=== PATIENT | male | born 1990 | race Caucasian/White ===

== ENCOUNTER 2023-04-27 17:51 | Emergency (ER) | payer BC, SELFPAY ==
[2023-04-27 17:52] VITALS: BP 148/97; PULSE 98; RESP 18; TEMP 35.9; O2SAT 100; BMI 36.1
[2023-04-27] MEDS: Oxycodone/Apap 5/325 Tablet PO ×2 (18:31→20:01)
--- NOTE | 2023-04-27 18:35 | RAD_ITS ---
STUDY: X-RAY - PELVIS REASON FOR EXAM: Male, 33 years old. trauma TECHNIQUE: One view of the pelvis was obtained. COMPARISON: None. FINDINGS: There is a non-specific bowel gas pattern. Normal visualized soft tissue structures. Normal bilateral iliac wings, sacroiliac joints and visualized sacrum. Normal visualized bilateral superior and inferior pubic rami. Normal pubic symphysis. Normal ischial tuberosities. Normal visualized right femoral head. Normal right acetabulum. Normal right hip joint. Normal visualized left femoral head. Normal left acetabulum. Normal left hip joint. RAD/Pelvis 1 or 2 Views IMPRESSION: Normal x-ray examination of the pelvis. Electronically Signed: Warren Kramer MD at 19:18 EST ,
--- NOTE | 2023-04-27 19:28 | EDS_ITS ---
HPI <CAROLANN Vazquez - Last Filed: 04/27/23 19:42> History of Present Illness Chief Complaint: Laceration Narrative Narrative: Patient is a 33-year-old male with no significant medical history presents to the emergency department after mechanical fall landing on a metal stake that entered his left upper buttock. Tetanus vaccination is unknown. Patient states he felt a significant tear to his left buttock, saw blood in fatty tissue and is here for evaluation. Denies any other injury. PFSH <CAROLANN Vazquez - Last Filed: 04/27/23 19:42> [facility] Medical History no medical history Home Medications amoxicillin 875 mg-potassium clavulanate 125 mg tablet 1 tab PO BID #14 tabs 04/27/23 [Rx Last Taken Unknown] hydrocodone-acetaminophen 5-325mg 5mg-325mg 1 tab PO Q4H PRN PRN Pain 3 days #10 TABLETS 04/27/23 [Rx Last Taken Unknown] Allergy/AdvReac Type Severity Reaction Status Date / Time No Known Allergies Allergy Verified 04/27/23 17:52 Social History Smoking Status: Never smoker ROS <CAROLANN Vazquez - Last Filed: 04/27/23 19:42> ROS ED ROS Narrative Constitutional: Negative for fever, chills, weight loss, weakness Eyes: Negative for vision loss, vision change, double vision ENT: Negative for any sore throat, ear pain, congestion Cardiovascular: Negative for any chest pain, tightness, palpitations Respiratory: Negative for any cough, sputum production, hemoptysis, dyspnea, dyspnea on exertion, orthopnea Gastrointestinal: Negative for any abdominal pain, nausea, vomiting, diarrhea, constipation, blood in stool, blood in vomit : Negative for any urinary frequency, dysuria, retention, blood in urine Muscle skeletal: Negative for any myalgias, arthralgias, neck pain, back pain Neurological: Negative for any headache, syncope, paresthesias, dizziness Skin: Negative for any rashes, lumps, itching, abrasions. Positive for significant laceration to the left upper buttock Psychiatric: Negative for any depression, anxiety, stress, suicidal ideation, homicidal ideation Hematologic: Negative for any easy bruising, excessive bruising, easy bleeding Allergies: Negative for any eczema, hives, rash EXAM <CAROLANN Vazquez - Last Filed: 04/27/23 19:42> Physical Exam Narrative Exam Narrative: Vital signs reviewed. splenomegaly Extremities: No peripheral edema, no signs of gross trauma or deformity. Active full range of motion of all extremities. Neuro: Cranial nerves II through XII intact, no focal neurological deficits. Skin: Clean dry and intact with no rash, purpura, petechiae, vesicles or pustules. Patient has a significant 7 cm full-thickness laceration to the upper buttock, there is soft tissue exposed. He has full range of motion of his left leg. No foreign body noted. Backs/flank: No CVA tenderness, no midline spinal tenderness, no deformity. Psych: Normal mood and affect. No SI, HI or acute psychosis. Const Vital Signs: 04/27/23 17:52 Temperature 96.6 F L Temperature Source Temporal Pulse Rate 98 Respiratory Rate 18 Blood Pressure 148/97 H Blood Pressure Mean 114 Pulse Ox 100 Oxygen Delivery Method Room Air <Dr. Nilo Hill MD - Last Filed: 04/27/23 23:03> Physical Exam Const Vital Signs: 04/27/23 17:52 Temperature 96.6 F L Temperature Source Temporal Pulse Rate 98 Respiratory Rate 18 Blood Pressure 148/97 H Blood Pressure Mean 114 Pulse Ox 100 Oxygen Delivery Method Room Air MDM <CAROLANN Vazquez - Last Filed: 04/27/23 19:42> MDM Radiography Diagnostic Testing: Clinical Impression(s) from Imaging Studies Pelvis X-Ray 04/27/23 18:35 IMPRESSION: Normal x-ray examination of the pelvis. Electronically Signed: Warren Kramer MD at 19:18 EST Reading Location ID and State: [facility] / [place] Tel , Service support , Treatment and Re-Evaluation :: Patient appears generally well, patient appears nontoxic, vital signs are stable. Presenting to the emerged part with complaints of left upper buttock laceration. This laceration is significant, it is full-thickness, 7 cm in length, 1 to 2 cm wide. Differential diagnosis includes laceration, hip fracture, foreign body. Patient will be given tetanus vaccination today, he was given oral Percocet as well as oral Augmentin. He did receive x-rays of the pelvis to ensure is no foreign body, the x-ray interpreted the ER physician was negative. I was able to anesthetize the area with lidocaine with epinephrine. I was able to copiously irrigate this wound with 500 cc of normal saline. Sterile gloves, sterile drapes were used. Patient tolerated the entire procedure well. I was able to place 5-0 Vicryl subcu sutures x 4 to close the wound. I was then able to use 3-0 Ethilon for the remainder of the wound. I was able to use 4 subcu sutures, and 8 Vicryl 3-0 sutures. Patient tolerated well, the edges approxim ated nicely. At this time, patient was placed in a dressing. He will be given 7 days of Augmentin. He will follow-up with his PCP for wound care as well as for suture removal. Patient will have these removed no earlier than 12 days. Patient is happy with the plan of care, all questions were answered, patient given strict return precaution. Stable for discharge <Dr. Nilo Hill MD - Last Filed: 04/27/23 23:03> [facility] Narrative Medical decision making narrative: I have personally performed a face to face assessment of the patient and have reviewed the [facility] Note. I performed a substantive portion of the visit including all aspects of the following. My rankin findings include: History: Patient actually slipped and cut his buttock on a course metal bracket. No other injury. No numbness tingling or weakness. Mild bleeding but not much now. It is unique that this piece of metal did not actually tear through his clothing. But it pressed hard enough that it tore this tissue under the clothing. Last tetanus is unknown. Exam: Patient awake alert and surprisingly comfortable. He has a 7 cm open contused laceration on the left buttock. There is no active bleeding. I do not see any gluteal muscle. Range of motion is intact. No foreign material seen in this. Medical Decision Making: X-ray was done that showed no acute process and no foreign material and final reading was normal. The area was copiously irrigated after anesthesia sutured in 2 layers. Because of the contused tissue we will use antibiotics. I feel this is a higher risk area than normal. Radiography Diagnostic Testing: Clinical Impression(s) from Imaging Studies Pelvis X-Ray 04/27/23 18:35 IMPRESSION: Normal x-ray examination of the pelvis. Electronically Signed: Warren Kramer MD at 19:18 EST , Discharge Plan Triage Chief Complaint: Laceration ED Midlevel Provider: Vinnie Gerard ED Provider: Nilo Hill Dx/Rx/DC Orders Clinical Impression: Laceration Instructions: ED Laceration Minimize Scars, ED Wound Check (No Infection) Prescriptions: New amoxicillin-pot clavulanate 875-125 mg tablet 1 tab PO BID Qty: 14 0RF hydrocodone-acetaminophen 5-325 mg tablet 1 tab PO Q4H PRN PRN (Reason: Pain) 3 Days Qty: 10 0RF Primary Care Provider: Devin Holcomb Referrals: NOT,DEFINED [Non-Staff] - Activity Restrictions/Additional Instructions: The sutures need to be in for no less than 10 to 12 days. Follow-up outpatient. Use antibiotics until finished. Pain medicines only for severe pain Disposition Disposition: Home, Self Care Discharge Date/Time: 04/27/23 20:05
[2023-04-27] MEDS: Diphth,Pertuss(Acell),Tet Vac 0.5 ML Vial IM (19:46)
[2023-04-27] MEDS: Amox/Clavulanate 875 MG Tablet PO (19:46)
[2023-04-27] MEDS: Lidocaine 1% /Epi 1:100 (20ml) 20 ML Vial 5 ML INFILT (19:46)
== END 2023-04-27 20:05 | disposition home or self-care (01) ==
PROVIDERS: Emergency Provider Emergency Medicine; PCP Family Medicine; Visit Provider Emergency Medicine
DX: S31.821A Laceration without foreign body of left buttock, initial encounter (principal); W01.119A Fall on same level from slipping, tripping and stumbling with subsequent striking against unspecified sharp object, initial encounter; Z23 Encounter for immunization
CPT/HCPCS: 12032; 72170; 90471; 90715; 99283